=== PATIENT | female | born 1950 | race Caucasian/White ===

== ENCOUNTER 2017-09-24 10:20 | Day surgery (SDC) | payer MEDICARE ==
[~2017-09-24] VITALS: Ht 160 cm; Wt 107.0 kg
[~2017-09-24 10:20] MED LIST: COLL250TO TOP; NATURAL THYROID MED; SULTRIDS PO; THYR60 PO
[2017-09-24] MEDS ORDERED: HAWTHORN150 MG PO (11:04)
== END 2017-09-24 22:51 | disposition home or self-care (01) ==
LOC: MHTC 10:20
PROC: 3E033TZ Introduction of Destructive Agent into Peripheral Vein, Percutaneous Approach (ICD-10-PCS; principal; 2017-09-24)
DX: I83.811 Varicose veins of right lower extremity with pain (principal); I83.11 Varicose veins of right lower extremity with inflammation; E03.9 Hypothyroidism, unspecified; Z87.891 Personal history of nicotine dependence
CPT/HCPCS: 36465; 36466; 99152; J2250; J3010; J7030; J7040

== ENCOUNTER 2020-09-17 11:55 | Inpatient (IN) | payer MEDICARE ==
[~2020-09-17] VITALS: Ht 162.6 cm; Wt 117.3 kg
[~2020-09-17 11:55] MED LIST changes: +HAWTHORN150 MG PO
[2020-09-17 12:20] LABS: Calcium, Ionized (POC) 1.23 mmol/L (1.10-1.46); Chloride (POC) 108 mmol/L (98-108); Creatinine (POC) 0.6 mg/dL (0.6-1.0); Glucose (ISTAT POC) 100 mg/dL (70-99); Hemoglobin (POC) 9.5 g/dL (12.0-16.0); Potassium (POC) 3.6 mmol/L (3.5-5.5); Sodium (POC) 141 mmol/L (135-148); Total CO2 (POC) 22 mmol/L (21-32)
[2020-09-17 12:48] LABS: International Normalized Ratio 1.25; Prothrombin Time Results 13.2 Sec (9.7-11.5)
[2020-09-17 12:54] LABS: Alanine Aminotransfer (ALT/SGP 79 U/L (12-78); Albumin, Blood 3.2 g/dL (3.4-5.0); Albumin/Globulin Ratio 0.9 (0.8-1.8); Alk Phos 91 U/L (50-136); Anion Gap 9 mmol/L (6-16); Aspartate Aminotrans (AST/SGOT 99 U/L (12-37); Bilirubin, Total 0.9 mg/dL (0.1-1.0); Blood Urea Nitrogen 29 mg/dL (8-24); Bun/Creatinine Ratio 47.5 (12.0-20.0); CO2, Blood 23 mmol/L (21-32); Calcium, Blood 8.7 mg/dL (8.5-10.1); Chloride, Blood 111 mmol/L (98-108); Creatinine, Blood 0.61 mg/dL (0.40-1.00); Globulin, Blood 3.7 g/dL (2.2-4.0); Glomerular Filtration Rate >60 (60-); Glucose, Blood 103 mg/dL (70-99); Magnesium, Blood 2.1 mg/dL (1.6-2.4); Potassium, Blood 3.7 mmol/L (3.5-5.5); Sodium, Blood 143 mmol/L (136-145); Total Protein, Blood 6.9 g/dL (6.4-8.2); Troponin I 0.029 ng/mL (0.000-0.040)
[2020-09-17 15:01] LABS: Source, Urine Catheter
[2020-09-17 15:05] LABS: Bilirubin, Urine Neg (Neg); Blood, Urine Neg (Neg); Glucose Qualitative, Urine Neg (Neg); Ketones, Urine 1+ (Neg); Leukocyte Esterase, Urine Neg (Neg); Nitrite, Urine Neg (Neg); Protein, Urine 2+ (Neg); Urobilinogen, Urine NORM (Normal)
[2020-09-17 15:06] LABS: Percent Saturation 9.5 % (15.0-50.0)
[2020-09-17 15:37] LABS: Appearance, Urine Clear (Clear); Color, Urine Yellow (P-Yellow)
[2020-09-17 15:39] LABS: Amorphous Mod (0-Heavy); Bacteria Rare /hpf; Red Blood Cells, Urine Not Seen /hpf (0-2); Squamous Epithelial Cells Rare /hpf (Few); White Blood Cells, Urine Rare /hpf (0-5)
[2020-09-17 16:07] LABS: BASOPHILS ABSOLUTE AUTO 0.01 K/mm3 (0.00-0.23); BASOPHILS PERCENT AUTO 0 % (0-2); EOSINOPHILS ABSOLUTE AUTO 0.01 K/mm3 (0.00-0.68); EOSINOPHILS PERCENT AUTO 0 % (0-6); Hematocrit 27.3 % (33.0-51.0); Hemoglobin 7.6 g/dL (11.5-16.0); IMMATURE GRAN ABSOLUTE AUTO 0.12 K/mm3 (0.00-0.10); IMMATURE GRAN PERCENT AUTO 1 % (0-1); LYMPHOCYTES ABSOLUTE AUTO 0.96 K/mm3 (0.84-5.20); LYMPHOCYTES PERCENT AUTO 8 % (21-46); MONOCYTES ABSOLUTE AUTO 1.13 K/mm3 (0.16-1.47); MONOCYTES PERCENT AUTO 9 % (4-13); Mean Corpuscular HGB 23.3 pg (26.0-34.0); Mean Corpuscular HGB Conc 27.8 g/dL (31.5-36.5); Mean Corpuscular Volume 84 fL (80-100); NEUTROPHILS ABSOLUTE AUTO 10.48 K/mm3 (1.96-9.15); NEUTROPHILS PERCENT AUTO 82 % (41-73); NRBC ABSOLUTE 0.45 K/mm3 (0.00-0.02); NRBC Auto 3.5 /100 WBC (0.0-0.2); Platelet Count 187 K/mm3 (150-400); RDW Coefficient Variation 25.9 % (11.7-14.2); RDW Standard Deviation 76.6 fL (35.1-46.3); Red Blood Cell Count 3.26 M/mm3 (3.80-5.20); White Blood Cell Count 12.71 K/mm3 (4.00-11.30)
[2020-09-17 16:12] LABS: Mean Platelet Volume 11.4 fL (9.1-12.4)
--- NOTE | 2020-09-17 18:05 | NUR ---
PATIENT ARRIVED FROM ED TO PCU 7, REPORT RECIEVED FROM BROCK MIKE. VSS, ON RA. DENIES ANY PAIN. VERY POOR HISTORIAN. NS @ 100ML/HR STARTED AND IRON INFUSION. 20G IV TO L AC WNL AND SL. ORIENTED TO ROOM AND USE OF CALL LIGHT. BED ALARM SET FOR SAFETY. A-FIB ON TELE IN THE ED WITH HR 110-120'S. DENIES ANY CP OR SOB.
[2020-09-18 04:11] LABS: Hematocrit 28.6 % (33.0-51.0); Hemoglobin 7.8 g/dL (11.5-16.0); Mean Corpuscular HGB 22.7 pg (26.0-34.0); Mean Corpuscular HGB Conc 27.3 g/dL (31.5-36.5); Mean Corpuscular Volume 83 fL (80-100); Mean Platelet Volume 10.8 fL (9.1-12.4); NRBC ABSOLUTE 0.55 K/mm3 (0.00-0.02); Platelet Count 204 K/mm3 (150-400); RDW Coefficient Variation 25.8 % (11.7-14.2); RDW Standard Deviation 74.9 fL (35.1-46.3); Red Blood Cell Count 3.43 M/mm3 (3.80-5.20); White Blood Cell Count 13.63 K/mm3 (4.00-11.30)
[2020-09-18 04:35] LABS: Alanine Aminotransfer (ALT/SGP 98 U/L (12-78); Albumin, Blood 3.2 g/dL (3.4-5.0); Albumin/Globulin Ratio 0.8 (0.8-1.8); Alk Phos 116 U/L (50-136); Anion Gap 9 mmol/L (6-16); Aspartate Aminotrans (AST/SGOT 130 U/L (12-37); Bilirubin, Total 1.1 mg/dL (0.1-1.0); Blood Urea Nitrogen 23 mg/dL (8-24); Bun/Creatinine Ratio 37.7 (12.0-20.0); CO2, Blood 22 mmol/L (21-32); Calcium, Blood 8.5 mg/dL (8.5-10.1); Chloride, Blood 112 mmol/L (98-108); Creatinine, Blood 0.61 mg/dL (0.40-1.00); Glomerular Filtration Rate >60 (60-); Glucose, Blood 89 mg/dL (70-99); Potassium, Blood 3.5 mmol/L (3.5-5.5); Sodium, Blood 143 mmol/L (136-145); Total Protein, Blood 7.2 g/dL (6.4-8.2)
--- NOTE | 2020-09-18 05:40 | NUR ---
SHIFT SUMMARY PT RESTED WELL THORUGH THE NIHGT. ALERT AND ORIENTED - ABLE TO MAKE NEEDS KNOWN. PT LETHARGIC AND CONTINUES TO BE WEAK. H/H REMAINED SAME FROM PREVIOUS LABS. NO SIGNS OF BLEEDING , NO BM. VSS. TELE READING AFIB UP TO 140-150'S - MD NOTIFIED AND METOPROLOL WAS ORDERED. SATS >90% ON ROOM AIR. PT DOESNT FEEL COMFORTABLE WITH GETTING UP TO BSC, SO BEDPAN WAS USED TO VOID. CONTINENT. NO C/O PAIN. NO SIGNS OF DIFFICULTY BREATHING. CALL LIGHT WITHIN REACH, BED IN LOWEST POSIITION. WILL CONTINUE TO MONITOR.
--- NOTE | 2020-09-18 19:22 | NUR ---
SHIFT SUMMARY: PT CONTINUES A&O BUT LETHARGIC AND WEAK T/OUT SHIFT. RESP EVEN AND UNLABORED WHILE AT REST, BUT PT QUICKLY DESATS WITH ACTIVITY. PT CONTINUES IN AFIB, RATE NOW 100-110 BPM. ECHO AND ABDOMINAL US COMPLETE TODAY, PENDING RESULTS. PT USES CALL LIGHT APPROPRIATELY TO MAKE NEEDS KNOWN. REPORT GIVEN TO [facility] SHERIFF TO ASSUME CARE OF PT.
[2020-09-19 04:44] LABS: Hematocrit 26.8 % (33.0-51.0); Hemoglobin 7.4 g/dL (11.5-16.0); Mean Corpuscular HGB 23.3 pg (26.0-34.0); Mean Corpuscular HGB Conc 27.6 g/dL (31.5-36.5); Mean Corpuscular Volume 84 fL (80-100); NRBC ABSOLUTE 1.05 K/mm3 (0.00-0.02); NRBC Auto 6.6 /100 WBC (0.0-0.2); Platelet Count 209 K/mm3 (150-400); RDW Coefficient Variation 26.8 % (11.7-14.2); RDW Standard Deviation 75.7 fL (35.1-46.3); Red Blood Cell Count 3.18 M/mm3 (3.80-5.20); White Blood Cell Count 15.89 K/mm3 (4.00-11.30)
[2020-09-19 04:47] LABS: Mean Platelet Volume 10.8 fL (9.1-12.4)
[2020-09-19 05:12] LABS: Alanine Aminotransfer (ALT/SGP 170 U/L (12-78); Albumin, Blood 2.8 g/dL (3.4-5.0); Albumin/Globulin Ratio 0.7 (0.8-1.8); Alk Phos 169 U/L (50-136); Anion Gap 10 mmol/L (6-16); Aspartate Aminotrans (AST/SGOT 325 U/L (12-37); Bilirubin, Total 1.2 mg/dL (0.1-1.0); Blood Urea Nitrogen 22 mg/dL (8-24); Bun/Creatinine Ratio 31.7 (12.0-20.0); CO2, Blood 22 mmol/L (21-32); Calcium, Blood 8.4 mg/dL (8.5-10.1); Chloride, Blood 112 mmol/L (98-108); Globulin, Blood 3.8 g/dL (2.2-4.0); Glomerular Filtration Rate >60 (60-); Glucose, Blood 102 mg/dL (70-99); Potassium, Blood 4.3 mmol/L (3.5-5.5); Sodium, Blood 144 mmol/L (136-145); Total Protein, Blood 6.6 g/dL (6.4-8.2)
--- NOTE | 2020-09-19 05:19 | NUR ---
SHIFT SUMMARY PATIENT IS ALERT AND ORIENTED BUT HAS MOMENTS OF CONSFUSION, APPEARED REALLY WEAK AND LETHARGIC AT TIMES. PATIENT USES BEDPAN BUT HAS EPISODES OF INCONTINENCE. STOOL SAMPLE SENT. 2 PERSON MAX ASSIST WITH TOILETING AND REPOSITIONING Q2 HOURS. 02 SATS DROP TO THE 70%s WHEN LAYING DOWN AND REPOSITIONING, 15L VIA NONREBREATHER NEEDED. 02 SATS >93% ON RA WHEN SITTING UP AT REST. PATIENT ATTEMPTED TO GET OUT OF BED AT ONE POINT WITHOUT USING CALL LIGHT, SHE ALSO YELLS INTO THE GORDON WHEN SHE NEEDS ASSISTANCE. TEACHING PROVIDED COLLECTIONS ASSOCIATE LIGHT USE AND BED ALARM IS ON. CALL LIGHT IS IN REACH. BED IN LOWEST POSITION.
[2020-09-19 08:07] LABS: HBSAG SCREEN Negative (Negative); HEP A AB, IGM Negative (Negative); HEP B CORE AB, IGM Negative (Negative); HEP C VIRUS AB <0.1 (0.0-0.9)
[2020-09-19 11:04] LABS: Stool Occult Bld Immuno 1 Positive (NEGATIVE)
[2020-09-19 13:39] LABS: Hemoglobin 8.3 g/dL (11.5-16.0)
--- NOTE | 2020-09-19 15:05 | NUR ---
Patient is sitting up in bed and alert. Patient tell me about her medical history, her current issues and her plan after DC. Patient tells many stories of the betrayal, loss of loved ones and possessions and the struggle of multiple health issues. Patient shares that her son and his family and her [employer] j[employer]y are her inspiration. She states that she would not have survivied the difficulties in her life without God's help. I normalize patient's experience, and provide therapeutic listening, emotional support and prayer. Patient responds well and states that a weight has been lifted after being able to talk and pray. I will continue to remain available to patient and family.
--- NOTE | 2020-09-19 18:04 | NUR ---
SHIFT SUMMARY: PT CONTINUES WEAK AND LETHARGIC T/OUT SHIFT. PT IS A&OX4, RESP EVEN AND SLIGHTLY LABORED, PT HAS MAINTAINED O2 SATS >93% ON ROOM AIR AT REST. PT WILL DESAT QUICKLY WITH ANY ACTIVITY, OXYGEN APPLIED PRIOR TO RECLINING AND ROLLING FOR BEDPAN USE AND ATTENS/LINEN CHANGING. PT CONTINUES WITH DECREASED APPETITE, DIETARY CONSULT ORDER HAS BEEN PLACED. PT IS ABLE TO DRINK AN ENSURE TODAY, ALSO TOLERATING GELATIN W/PROTEIN. LAB REVEALS +GUAIC, PT PENDING DR ROONEY CONSULT, DR ROONEY SPOKE WITH DR SOLORZANO RE: PT TODAY. PT PENDING HIDA SCAN IN AM, TO BE NPO AT MIDNIGHT. WILL CONTINUE TO MONITOR AND TREAT ACCORDINGLY UNTIL CHANGE OF SHIFT.
[2020-09-19 19:08] LABS: Hematocrit 29.2 % (33.0-51.0); Hemoglobin 8.1 g/dL (11.5-16.0)
[2020-09-20 01:29] LABS: BASOPHILS ABSOLUTE AUTO 0.01 K/mm3 (0.00-0.23); BASOPHILS PERCENT AUTO 0 % (0-2); EOSINOPHILS ABSOLUTE AUTO 0.03 K/mm3 (0.00-0.68); EOSINOPHILS PERCENT AUTO 0 % (0-6); Hematocrit 27.6 % (33.0-51.0); Hemoglobin 7.6 g/dL (11.5-16.0); IMMATURE GRAN ABSOLUTE AUTO 0.16 K/mm3 (0.00-0.10); IMMATURE GRAN PERCENT AUTO 1 % (0-1); LYMPHOCYTES ABSOLUTE AUTO 1.38 K/mm3 (0.84-5.20); LYMPHOCYTES PERCENT AUTO 8 % (21-46); MONOCYTES ABSOLUTE AUTO 2.02 K/mm3 (0.16-1.47); MONOCYTES PERCENT AUTO 12 % (4-13); Mean Corpuscular HGB 23.9 pg (26.0-34.0); Mean Corpuscular HGB Conc 27.5 g/dL (31.5-36.5); Mean Corpuscular Volume 87 fL (80-100); Mean Platelet Volume 10.7 fL (9.1-12.4); NEUTROPHILS ABSOLUTE AUTO 13.63 K/mm3 (1.96-9.15); NEUTROPHILS PERCENT AUTO 79 % (41-73); NRBC ABSOLUTE 1.81 K/mm3 (0.00-0.02); NRBC Auto 10.5 /100 WBC (0.0-0.2); Platelet Count 219 K/mm3 (150-400); RDW Standard Deviation 77.8 fL (35.1-46.3); Red Blood Cell Count 3.18 M/mm3 (3.80-5.20); White Blood Cell Count 17.23 K/mm3 (4.00-11.30)
[2020-09-20 01:47] LABS: Alanine Aminotransfer (ALT/SGP 274 U/L (12-78); Albumin, Blood 2.7 g/dL (3.4-5.0); Albumin/Globulin Ratio 0.7 (0.8-1.8); Alk Phos 184 U/L (50-136); Anion Gap 8 mmol/L (6-16); Aspartate Aminotrans (AST/SGOT 493 U/L (12-37); Bilirubin, Total 1.1 mg/dL (0.1-1.0); Blood Urea Nitrogen 23 mg/dL (8-24); Bun/Creatinine Ratio 33.4 (12.0-20.0); CO2, Blood 24 mmol/L (21-32); Calcium, Blood 8.2 mg/dL (8.5-10.1); Chloride, Blood 110 mmol/L (98-108); Creatinine, Blood 0.69 mg/dL (0.40-1.00); Globulin, Blood 3.7 g/dL (2.2-4.0); Glomerular Filtration Rate >60 (60-); Glucose, Blood 110 mg/dL (70-99); Potassium, Blood 3.8 mmol/L (3.5-5.5); Sodium, Blood 142 mmol/L (136-145); Total Protein, Blood 6.4 g/dL (6.4-8.2)
--- NOTE | 2020-09-20 05:48 | NUR ---
SHIFT SUMMARY PATIENT IS ALERT AND ORIENTED. LETHARGIC AT TIMES AND MOOD IS FLAT. PATIENT IS FORGETFUL OF LIMITATIONS AND TRIES TO GET UP WITHOUT ASSISTANCE. TEACHING PROVIDED MENAGERIE CARETAKER LIGHT USE. PATIENT USES BEDPAN AND IS A Q2 HOUR TURN, TWO PERSON MAX ASSIST. 02 SATS >95% ON 2L, PATIENT 02 SATS DECREASE WHEN LAYING FLAT FOR REPOSITIONING. VSS, NO ACUTE CHANGES. DR. MORGAN IN TO SEE PATIENT, EGD SCHEDULE FOR TODAY. CALL LIGHT IN REACH, BED ALARM ON.
[2020-09-20 07:25] LABS: Hematocrit 25.9 % (33.0-51.0); Hemoglobin 7.6 g/dL (11.5-16.0)
--- NOTE | 2020-09-20 07:30 | NUR ---
ASSUMED CARE: PT RESTING IN BED AT THIS TIME. LETHARGIC BUT AROUSEABLE. LAB AT BEDSIDE. AFIB ON TELE IN 1TEENS. NO ACUTE NEEDS OR CONCERNS AT THIS TIME.
--- NOTE | 2020-09-20 09:01 | NUR ---
PT TAKEN FOR HIDA SCAN
--- NOTE | 2020-09-20 11:30 | NUR ---
PT RETURNED FROM HIDA SCAN.
--- NOTE | 2020-09-20 17:09 | NUR ---
PT TAKEN VIA [facility] TO DAY SURGERY FOR EGD BY DAY SURGERY STAFF
--- NOTE | 2020-09-20 17:10 | NUR ---
PT OFF TO DAY SURGERY FOR EGD AT THIS TIME.
--- NOTE | 2020-09-20 17:18 | NUR ---
09/20/20 1718 [place] History, Chart, Medications and Allergies reviewed before start of procedure. 3-LEAD EKG REVIEWED WITH PHYSICIAN PRIOR TO START OF PROCEDURE. MONITOR INTACT WITH CONTINUOUS PULSE OXIMETRY AND INTERMITTENT BP. O2 VIA N/C INTACT THROUGHOUT SEDATION/PROCEDURE. See Anesthesia record.
--- NOTE | 2020-09-20 17:29 | NUR ---
TRANSFERED PT FROM PCU TO [facility]. History, Chart, Medications and Allergies reviewed before start of procedure. Lungs clear T/O to Auscultation. Patient confirms NPO status and agrees with scheduled surgery. Pre-Op teaching done. Pt verbalizes understanding.
--- NOTE | 2020-09-20 18:42 | NUR ---
PT RETURNED FROM DAY SURGERY. SHE APPEARS TO BE STILL MILDLY SEDATED, DIFFICULT TO AWAKEN AND REQUIRING INCREASED 02 VIA NC. RESP 14. SEE DOCUMENTED VITAL SIGNS. SP02 INCREASED FROM 77% WHEN PLACED ON MONITOR IN PT'S ROOM TO 93% ON 5L 02. PER DR ROONEY, EGD SHOWED SOME VERY SMALL AREAS THAT WERE BLEEDING. NEW ORDERS ON CHART.
[2020-09-21 04:07] LABS: BASOPHILS ABSOLUTE AUTO 0.02 K/mm3 (0.00-0.23); BASOPHILS PERCENT AUTO 0 % (0-2); EOSINOPHILS ABSOLUTE AUTO 0.03 K/mm3 (0.00-0.68); EOSINOPHILS PERCENT AUTO 0 % (0-6); Hematocrit 28.7 % (33.0-51.0); IMMATURE GRAN ABSOLUTE AUTO 0.21 K/mm3 (0.00-0.10); IMMATURE GRAN PERCENT AUTO 1 % (0-1); LYMPHOCYTES PERCENT AUTO 10 % (21-46); MONOCYTES ABSOLUTE AUTO 1.71 K/mm3 (0.16-1.47); MONOCYTES PERCENT AUTO 11 % (4-13); Mean Corpuscular HGB 24.2 pg (26.0-34.0); Mean Corpuscular HGB Conc 27.9 g/dL (31.5-36.5); Mean Corpuscular Volume 87 fL (80-100); Mean Platelet Volume 10.9 fL (9.1-12.4); NEUTROPHILS ABSOLUTE AUTO 12.65 K/mm3 (1.96-9.15); NEUTROPHILS PERCENT AUTO 78 % (41-73); NRBC ABSOLUTE 0.67 K/mm3 (0.00-0.02); NRBC Auto 4.1 /100 WBC (0.0-0.2); Platelet Count 213 K/mm3 (150-400); RDW Coefficient Variation 28.3 % (11.7-14.2); RDW Standard Deviation 75.7 fL (35.1-46.3); White Blood Cell Count 16.22 K/mm3 (4.00-11.30)
[2020-09-21 04:23] LABS: Alanine Aminotransfer (ALT/SGP 287 U/L (12-78); Albumin, Blood 2.8 g/dL (3.4-5.0); Albumin/Globulin Ratio 0.8 (0.8-1.8); Alk Phos 195 U/L (50-136); Anion Gap 8 mmol/L (6-16); Aspartate Aminotrans (AST/SGOT 363 U/L (12-37); Bilirubin, Total 1.3 mg/dL (0.1-1.0); Blood Urea Nitrogen 23 mg/dL (8-24); Bun/Creatinine Ratio 30.4 (12.0-20.0); CO2, Blood 23 mmol/L (21-32); Calcium, Blood 8.5 mg/dL (8.5-10.1); Chloride, Blood 113 mmol/L (98-108); Creatinine, Blood 0.76 mg/dL (0.40-1.00); Globulin, Blood 3.5 g/dL (2.2-4.0); Glomerular Filtration Rate >60 (60-); Glucose, Blood 88 mg/dL (70-99); Potassium, Blood 3.8 mmol/L (3.5-5.5); Sodium, Blood 144 mmol/L (136-145); Total Protein, Blood 6.3 g/dL (6.4-8.2)
--- NOTE | 2020-09-21 05:21 | NUR ---
SHIFT SUMMARY PATIENT IS LETHARGIC BUT BECOMES ALERT ENOUGH TO HOLD A CONVERSATION, SHE IS ORIENTED BUT FORGETS LIMITATIONS AND OCCASSIONALLY TRIES TO GET OUT OF BED. 02 SATS >95% ON 2L. VSS, NO ACUTE CHANGES. PATIENT REPOSITIONED Q2 HOURS, USES BEDPAN, BUT HAS MOMENTS OF INCONTINENCE. CALL LIGHT IN REACH, BED IN LOWEST POSITION, BED ALARM IS ON.
[2020-09-21 07:11] LABS: HBSAG SCREEN Negative (Negative); HEP A AB, IGM Negative (Negative); HEP B CORE AB, IGM Negative (Negative); HEP C VIRUS AB 0.2 (0.0-0.9)
--- NOTE | 2020-09-21 09:21 | NUR ---
PERMISSION FOR CARE THIS SHANK SANDER RECIEVED PERMISSION FROM THIS PAIENT (RANDALL HEATH) TO PERFOMR CARE ON THIS DAY (09/21/2020).
--- NOTE | 2020-09-21 19:19 | NUR ---
PT WORKED WITH PHYSICAL THERAPY TODAY AND STARTED ON XERALTO. REPORT GIVEN TO NOC SHIFT RN. NO NEEDS IDENTIFIED AT THIS TIME.
--- NOTE | 2020-09-22 06:25 | NUR ---
transfer report from [facility] on 69 year old Female with bilat PES, anemia, post egd with ulcerations. On xaralto for bilat PEs on room air per report. Await transfer.
--- NOTE | 2020-09-22 06:41 | NUR ---
assumed care of PT who alert but forgetful. She is focused on getting yogurt to help her breathe better. Room air sat 97%. Recent falls bed alarm activated. Skin pale warm & dry.
[2020-09-22 08:55] LABS: Alanine Aminotransfer (ALT/SGP 219 U/L (12-78); Albumin, Blood 2.6 g/dL (3.4-5.0); Albumin/Globulin Ratio 0.8 (0.8-1.8); Alk Phos 180 U/L (50-136); Anion Gap 7 mmol/L (6-16); Aspartate Aminotrans (AST/SGOT 194 U/L (12-37); Blood Urea Nitrogen 18 mg/dL (8-24); Bun/Creatinine Ratio 26.4 (12.0-20.0); CO2, Blood 24 mmol/L (21-32); Calcium, Blood 8.3 mg/dL (8.5-10.1); Chloride, Blood 115 mmol/L (98-108); Creatinine, Blood 0.68 mg/dL (0.40-1.00); Globulin, Blood 3.4 g/dL (2.2-4.0); Glomerular Filtration Rate >60 (60-); Glucose, Blood 84 mg/dL (70-99); Potassium, Blood 3.5 mmol/L (3.5-5.5); Sodium, Blood 146 mmol/L (136-145)
[2020-09-22 17:41] LABS: Influenza A, PCR Negative (NEGATIVE); Influenza B, PCR Negative (NEGATIVE); Resp Syncytial Virus, PCR Negative (NEGATIVE)
--- NOTE | 2020-09-22 18:22 | NUR ---
PATIENT A/OX4, SLOW TO RESPOND AT TIMES. UP TO CHAIR FOR MEALS USING CEILING LIFT. DIFLUCAN TO TREAT YEAST RASH TO FOLDS. POOR APPETITE, ENCOURAGE PO INTAKE. INCONTINENT OF URINE, WEARING ATTENDS. DENIES ANY PAIN. A-FIB ON TELE, HR 110-120 THIS SHIFT. PATIENT DENIES ANY CP OR PRESSURE, MAINTAINING SATS ON RA. COVID TEST COMPLETED AND WAS NEGATIVE. AWAITING SNF PLACEMENT.
[2020-09-22 19:10] LABS: SARS-Cov-2 (COVID-19) PCR, MMC Negative (NEGATIVE)
--- NOTE | 2020-09-23 05:08 | NUR ---
SHIFT SUMMARY NO ACUTE CHANGES THIS SHIFT. PT IS A&O X4, CALM AND COOPERATIVE WITH CARE. SLEPT WELL WITH NO COMPLAINTS T/O NIGHT. VSS. PT IS LAYING IN BED WITH EYES CLOSED, EVEN AND UNLABORED RESPIRATIONS. BED IN LOWERED POSITION WITH ALARM IN PLACE, CALL LIGHT AND PERSONAL ITEMS WITH IN REACH. NO APPARENT NEEDS OR DISTRESS AT THIS TIME, WILL CONTINUE TO MONITOR UNTIL REPORT GIVEN TO DAY RN.
[2020-09-23 10:11] LABS: ACT. PRT C RESIST W/FV DEFIC. 2.6 ratio (.); APTT 27.9 sec (.); DRVVT CONFIRM SECONDS 37.8 sec (.); DRVVT RATIO 1.1 ratio (.); DRVVT SCREEN SECONDS 47.4 sec (.); FACTOR VIII ACTIVITY 277 % (.); HEXAGONAL PHOSPHOLIPID NEUTRAL 7 sec (.); HOMOCYSTEINE 12.1 umol/L (.); PRT C ACTIVITY (CHROMOGENIC) 68 % (.)
--- NOTE | 2020-09-23 17:00 | NUR ---
PATIENT D/C'D TO [facility]IA [facility]. REPORT CALLED TO [facility]BER. ROCA AT TIMES OF DC WAS 98.6. PACKET GIVEN TO BOOSTER PUMP OILER AND BELONGINGS SENT WITH PATIENT. PATIENT DENIES ANY FURTHER QUESTIONS OR CONCERNS.
== END 2020-09-23 16:59 | DRG 175 ==
LOC: ER 11:55 → PCU 17:29 → MEDS 09-22 06:33
PROVIDERS: Emergency Medicine; Internal Medicine; Internal Medicine Gastroenterology; ADMIT Internal Medicine
PROC: 0DJ08ZZ Inspection of Upper Intestinal Tract, Via Natural or Artificial Opening Endoscopic (ICD-10-PCS; principal; 2020-09-20 13:45)
DX: I26.99 Other pulmonary embolism without acute cor pulmonale (principal); K25.4 Chronic or unspecified gastric ulcer with hemorrhage; I50.43 Acute on chronic combined systolic (congestive) and diastolic (congestive) heart failure; I47.1 Supraventricular tachycardia; I48.20 Chronic atrial fibrillation, unspecified; K81.0 Acute cholecystitis; Z87.891 Personal history of nicotine dependence; E66.01 Morbid (severe) obesity due to excess calories; Z68.34 Body mass index [BMI] 34.0-34.9, adult; E03.9 Hypothyroidism, unspecified; E86.0 Dehydration; D50.9 Iron deficiency anemia, unspecified; I48.91 Unspecified atrial fibrillation; I87.2 Venous insufficiency (chronic) (peripheral); K76.1 Chronic passive congestion of liver; Z20.822 Contact with and (suspected) exposure to COVID-19; K59.09 Other constipation; I51.3 Intracardiac thrombosis, not elsewhere classified; T44.7X5A Adverse effect of beta-adrenoreceptor antagonists, initial encounter; Y92.230 Patient room in hospital as the place of occurrence of the external cause; R94.5 Abnormal results of liver function studies
CPT/HCPCS: 0241U; 36415; 71260; 76705; 78227; 80047; 80053; 80074; 81001; 81240; 82274; 82607; 82728; 82746; 83090; 83540; 83550; 83735; 84439; 84443; 84484; 85014; 85018; 85025; 85027; 85240; 85300; 85303; 85306; 85307; 85610; 85613; 85730; 85732; 86146; 86147; 87040; 93005; 93010; 93970; 94762; 96361; 96372-59; 96374-59; 97110; 97161; 97166; 97530; 97535; 99285-25; A9270; A9537; C8929; J1650; J2001; J2250; J2704; J2916; J7030; J7120; P9612; Q9957; Q9967